=== PATIENT | female | born 1995 | race Two or more races ===

== ENCOUNTER 2025-04-14 19:37 | Emergency (ER) | payer MEDICAID, SELFPAY ==
[2025-04-14 19:39] VITALS: BMI 68.1
[2025-04-14 19:56] VITALS: BP 125/80; PULSE 103; RESP 17; TEMP 36.9; O2SAT 100
--- NOTE | 2025-04-14 20:00 | XR_ITS ---
Examination: Abdomen sonogram, Limited Date and time of exam: April 14, 2025, 8:49 PM INDICATIONS: Vomiting blood today Technique: Real-time villagran scale transabdominal sonographic images of the upper abdomen obtained. Findings: Absent gallbladder Normal common bile duct 0.5 cm Pancreatic head 3.4 cm Liver 15.8 cm fatty infiltration no focal liver lesions Normal hepatopedal portal venous flow Patent IVC IMPRESSION: Normal common bile duct Fatty liver
--- NOTE | 2025-04-14 20:00 | XR_ITS ---
Examination: Complete OB ultrasound greater than 14 weeks Date and time of exam: April 14, 2025 2055 hours INDICATIONS: Hematemesis today Findings: Viable intrauterine single fetus with single amniotic sac presentation cephalic spine maternal right Cardiac motion 132 BPM Placenta anterior grade 3 Umbilical cord insertion seen Amniotic fluid index 17.6 cm Cervix 3.7 cm Ovaries obscured by bowel gas. Composite estimated gestational age based on BPD, head circumference, abdominal circumference, femur length is 30 weeks 2 days Estimated weight 1499 g. Survey of intracranial anatomy, spinal anatomy, abdominal anatomy, four-chamber heart performed with no abnormalities identified. Impression: Viable intrauterine gestation cephalic presentation.
--- NOTE | 2025-04-14 20:01 | PD.EDPREG ---
ED OB Contraction Preg RMI/HPI General Chief complaint: Nausea/Vomiting/Diarrhea Stated complaint: nausea vomitng with streaks of blood Time Seen by Provider: 04/14/25 19:41 Arrival date/time: 04/14/25 19:37 This is a case of 29-year-old female who came in in the emergency room due to abdominal pain cramping in character for 4 days associated with nausea vomiting and loose stool twice today none watery nonbloody non mucoid patient denies any vaginal bleeding spotting or vaginal discharge denies any fever or chills denies contraction patient is 30 weeks 3 para 2 LMP April 02, 2025 last seen OB 2 weeks ago Limitations: no limitations Related Data Previous Rx's ?Medication ?Instructions ?Recorded docusate sodium 100 mg capsule 100 mg PO BID #40 caps 06/05/24 (Colace) hydrocodone 5 mg-acetaminophen 325 1 tab PO Q6H PRN pain (scale score 06/05/24 mg tablet 7-10) #20 tabs ibuprofen 600 mg tablet 600 mg PO Q8H PRN pain (scale 06/05/24 score 4-6) #15 tabs naproxen 500 mg tablet 500 mg PO BID PRN pain #30 tabs 07/14/24 nitrofurantoin 100 mg PO BID 10 days #20 caps 04/14/25 monohydrate/macrocrystals 100 mg capsule (Macrobid) ondansetron 4 mg disintegrating 4 mg PO Q8H PRN nausea and 04/14/25 tablet vomiting #10 tabs oseltamivir 75 mg capsule (Tamiflu) 75 mg PO BID 5 days #10 caps 04/14/25 Allergies Allergy/AdvReac Type Severity Reaction Status Date / Time No Known Allergies Allergy Verified 04/14/25 19:57 Review of Systems Review of Systems Systems Reviewed: All systems reviewed, normal except as documented Constitutional Constitutional: Reports system reviewed and no additional complaints, except as documented and Reports as per HPI ENT Ears, Nose, Mouth, and Throat: Denies dysphagia and Denies odynophagia Cardiovascular Cardiovascular: Reports system reviewed and no additional complaints, except as documented and Reports as per HPI Respiratory Respiratory: Reports system reviewed and no additional complaints, except as documented and Reports as per HPI Gastrointestinal Gastrointestinal: Reports system reviewed and no additional complaints, except as documented, Reports as per HPI, Reports abdominal pain, Denies belching, Denies bloating, Denies change in bowel habits, Denies change in stool character, Denies coffee ground emesis, Denies constipation, Reports cramping, Denies diarrhea, Denies dyspepsia, Denies dysphagia, Denies early satiety, Denies excessive flatus, Denies fecal incontinence, Denies heartburn, Denies hematemesis, Denies hematochezia, Reports loose stools, Denies melena, Reports nausea, Denies odynophagia, Denies tenesmus and Reports vomiting Genitourinary Genitourinary: Reports system reviewed and no additional complaints, except as documented and Reports as per HPI Musculoskeletal Musculoskeletal: Reports system reviewed and no additional complaints, except as documented and Reports as per HPI Neurologic Neurologic: Reports system reviewed and no additional complaints, except as documented and Reports as per HPI Past Medical History Past Medical History NEUROLOGIC: Negative Neurological Disorders or Seizures CARDIAC: Negative Cardiac Disorders or Congestive Heart Failure RESPIRATORY: Negative Chronic Obstructive Pulmonary Disease (COPD) GASTROINTESTINAL: Positive Gastrointestinal Disorders and Gall Bladder Disease GENITOURINARY: Negative Genitourinary Disorders or Renal Disease REPRODUCTIVE: Positive Previous Pregnancies; Negative Breast Cancer, Endometriosis, Pelvic Inflammatory Disease or Uterine Prolapse MUSCULOSKELETAL: Negative Musculoskeletal Disorders ENDOCRINE: Negative Endocrine Disorders, Diabetes Mellitus Type 1 or Diabetes Mellitus Type 2 HEMATOLOGIC: Positive Blood Disorders and Anemia OTHER HISTORY: Positive Chicken Pox; Negative Hospitalization, Autoimmune Disease, Down Syndrome, Developmental Delay, Shingles, Falls, Blood Transfusions, Blood Transfusion Reaction, Anesthesia Reactions, Organ Transplant, Chemotherapy, Radiation Therapy, Hyperbaric Therapy, MRSA, VRSA, Vancomycin-Resistant Enterococci, Human Immunodeficiency Virus (HIV), Measles, Mumps, Rubella (Prydeinig Measles), Pertussis, Clostridium Difficile, Cancer, Breast Cancer, Cervical Cancer or Ovarian Cancer Family History FAMILY HISTORY: Negative Family Psychiatric Problems, Family Respiratory Disorders, Family Cardiac Disorders, Family Gastrointestinal Problems, Family Cancer, Family Surgery or Family Anesthesia Reaction Surgical History SURGICAL: Negative Endocrine Surgery, Section or Organ Transplant Social History SMOKING STATUS: Never smoker SECOND HAND EXPOSURE: No ED Exam General Limitations: Present no limitations General appearance: Present alert and in no apparent distress Head Head exam: Present atraumatic, normocephalic and normal inspection Eye Eye exam: Present normal appearance, PERRL and EOMI ENT ENT exam: Present normal exam, normal oropharynx and mucous membranes moist Neck Neck exam: Present normal inspection, full ROM and trachea midline; Absent tenderness, meningismus, lymphadenopathy or thyromegaly Chest Chest inspection: Present normal inspection and symmetric chest wall rise Respiratory Respiratory exam: Present normal lung sounds bilaterally; Absent respiratory distress, wheezes, stridor, accessory muscle use or prolonged expiratory phase Cardiovascular Cardiovascular exam: Present regular rate, normal rhythm and normal heart sounds; Absent bradycardia, tachycardia, irregular rhythm, systolic murmur or +S3 Abdominal Exam Abdominal exam: Present soft, normal bowel sounds and other ( uterus no tenderness noted no CVA tenderness); Absent guarding, rebound or rigidity Extremities Exam Extremities exam: Present normal inspection and full ROM Back Exam Back exam: Present normal inspection and full ROM Neurological Exam Neurological exam: Present alert, oriented X3, CN II-XII intact, normal gait and reflexes normal; Absent motor sensory deficit Psychiatric Psychiatric exam: Present normal affect and normal mood Skin Skin exam: Present warm, dry, intact and normal color Course Quality Measures none Orders Category Date Time Status Bedside Influenza A&B Antigen Test NOW Care 04/14/25 20:01 Completed Non-Stress Test Now Care 04/14/25 23:16 Active US OB >= 14 weeks Fetus Stat Exams 04/14/25 20:00 Completed US gall bladder Stat Exams 04/14/25 20:00 Completed ABO/RH Type Stat Lab 04/14/25 20:16 Completed Beta HCG,Quantitative Stat Lab 04/14/25 20:16 Completed CBC Stat Lab 04/14/25 20:16 Completed CMP [Comprehensive Metabolic Panel] Stat Lab 04/14/25 20:16 Completed COVID-19 Antigen (In-House) Stat Lab 04/14/25 20:20 Completed Urinalysis Stat Lab 04/14/25 12:01 Completed Ondansetron Inj [Zofran Inj] Med 04/14/25 20:00 Discontinued 4 mg IVP X1 ONE Sodium Chloride 0.9% 1000 ml [Ns] 1,000 ml Med 04/14/25 20:01 Discontinued IV 999 mls/hr Vital Signs Vital signs: Vital Signs Temperature 98.4 F 04/14/25 19:56 Pulse Rate 103 H 04/14/25 19:56 Respiratory Rate 17 04/14/25 19:56 Blood Pressure 125/80 04/14/25 19:56 Pulse Oximetry (%) 100 04/14/25 19:56 Oxygen Delivery Method Room Air 04/14/25 19:56 Patient is afebrile not tachycardic not tachypneic BP stable not hypoxic oxygen saturation in room air OB/Uterine Contractions MDM Narrative MDM Narrative:: This is a case of 29-year-old female who came in in the emergency room due to abdominal pain cramping in character for 4 days associated with nausea vomiting and loose stool twice today none watery nonbloody non mucoid patient denies any vaginal bleeding spotting or vaginal discharge denies any fever or chills denies contraction patient is 30 weeks 3 para 2 LMP April 02, 2025 last seen OB 2 weeks ago patient is awake alert oriented not in distress nontoxic looking excellent skin turgor abdominal exam is benign nonsurgical no guarding no rebound no rigidity uterus no CVA tenderness the rest of the physical examination and neurological exam is normal and unremarkable blood test showed mild leukocytosis with the WBC 11,600 no anemia kidney and liver function is normal no electrolyte [place] [address] patient urine analysis showed WBC and urine suggestive of urinary tract infection ultrasound of the gallbladder is noted absence of gallbladder with fatty liver ultrasound of the pelvis showed normal heart tone [address] la patient condition history and physical examination ordered to give patient Tamiflu for positive influenza A and B and to have NST done NST done at bedside and noted to be normal at this point patient will be discharged per [employer] instruction patient COVID is negative patient was given a bolus of normal saline and Zofran IV 4 mg no recurrence of vomiting abdominal pain was resolved at this point patient will be discharged as influenza and urinary tract infection patient was prescribed with Tamiflu for influenza Macrobid for urinary tract infection and Zofran for vomiting she was also advised to see an OB surveillance observer tomorrow for further evaluation and checkup she was advised for any recurrence persistent worsening symptoms or any fever chills abdominal pain contraction or the fetus is not moving or vaginal bleeding vaginal spotting or vaginal discharge she needs to call 911 or go to the nearest emergency room Patient was discharged with comfortable condition walking with stable gait. Patient verbalized no further complains explained diagnosis and answered patient question. Patient is comfortable with the proposed management plan including the need to follow up with his/her primary care physician and any specialist if applicable Discussed patient for any urgent condition or worsening sx, He/She needed to go to emergency room immediately or call 911. Patient acknowledge the responsibility to follow up as instructed and to monitor her/his symptoms. For any persistence of the symptoms for more than 3-5 days return precaution advised. Discussed the result of the test and was given printed discharge instruction Patient data External records reviewed:: [facility] previous records Clinical information provided by:: patient Social determinants that could affect healthcare access:: none Patient has the following chronic illnesses:: None How is presenting disease/condition affected by chronic disease/condition?: no chronic disease Evaluation data The following diagnostics were reviewed and interpreted by me:: lab results and radiology exam(s) Lab and/or radiology exams considered but not ordered:: Reviewed Interpretation Summary: Reviewed Medications / Prescriptions Medications or Prescriptions considered but not ordered:: Given Medication administrations:: Medication Administration History Discontinued Medications Sodium Chloride (Ns) 1,000 mls @ 999 mls/hr IV .Q1H1M ONE Stop: 04/14/25 21:01 Last Infusion: 04/14/25 21:54 Dose: Infused Documented By: Admin: 04/14/25 20:39 Dose: 999 mls/hr Documented By: DT Ondansetron HCl (Ondansetron Inj 2 Mg/Ml Inj 2 Ml) 4 mg IVP X1 ONE; Protocol Stop: 04/14/25 20:01 Last Admin: 04/14/25 20:34 Dose: 4 mg Documented By: DT Given Consultations Consultation(s) initiated? (list below): Yes Consultation #1 (Physician, Specialty, Details): dr la do NST if NST is normal will discharge patient with Tamiflu Diagnosis OB Contractions Differential Diagnosis: other (Abdominal pain in UTI influenza) Most likely diagnosis given after review of the tests above:: Abdominal pain in UTI influenza Admission Indicated Admission indicated?: not indicated Explain why admission is indicated or not indicated:: Not indicated Admission Request Was there a request for admission?: No Admission Attestation Admission request attestation: Not indicated Disposition Plan Disposition Plan: Discharge Discharge Attestation Discharge Attestation: The patient and all family members were given an opportunity to ask questions and understood the discharge instructions. Discharge instructions specifically effects, indications for sooner follow up or return to the emergency department, and the expected course of current diagnosis. Patient condition: Stable Discharge Plan Plan Patient Disposition: HOME (Self Care) Prescriptions/Referrals Prescriptions/Med Rec: New oseltamivir [Tamiflu] 75 mg capsule 75 mg PO BID 5 Days Qty: 10 0RF ondansetron 4 mg tablet,disintegrating 4 mg PO Q8H PRN (Reason: nausea and vomiting) Qty: 10 0RF nitrofurantoin monohyd/m-cryst [Macrobid] 100 mg capsule 100 mg PO BID 10 Days Qty: 20 0RF Rx Instructions: must administer with a meal/food No Action naproxen 500 mg tablet 500 mg PO BID PRN (Reason: pain) Qty: 30 0RF docusate sodium [Colace] 100 mg capsule 100 mg PO BID Qty: 40 0RF hydrocodone-acetaminophen 5-325 mg tablet 1 tab PO Q6H MDD 4 PRN (Reason: pain (scale score 7-10)) Qty: 20 0RF ibuprofen 600 mg tablet 600 mg PO Q8H PRN (Reason: pain (scale score 4-6)) Qty: 15 0RF Referrals: Giovanni Hairston PA-C [Primary Care Provider] - In 1 week Problem List Clinical Impression: Abdominal pain during , Vomiting during , Influenza, Urinary tract infection Patient/Caregiver Discharge Instructions Education Materials: Urinary Tract Infections in Women, ED Abdominal Pain, Early , ED Influenza (Adult), ED Vomiting (Adult) Additional Instructions: Follow-up with your primary care physician in 2 days for reevaluation for any recurrence persistent worsening symptoms or any emergent concern call 911 or go to the nearest emergency room it is very important to follow-up with your OB surveillance observer tomorrow for reevaluation and checkup increase water intake keep hydrated Pedialyte Gatorade for every bouts of vomiting for any fever chills abdominal contraction vaginal bleeding vaginal discharge vaginal spotting you need to return in the emergency room immediately or call 911 monitor contraction is necessary continue your multivitamins Print Language: [place]i Stand Alone Forms: Mely Award Info., Patient Portal Info Letter PA/BIOMEDICAL ENGINEERING TECHNOLOGIST Supervising Physician PA/KRISTAN Supervising Physician: dr simpson
[2025-04-14 20:30] LABS: COVID-19 Antigen (In-House) Negative (Negative)
[2025-04-14 20:31] LABS: Basophils % (Auto) 0 % (0-2.5); Eosinophils % (Auto) 0 % (0-10); Hematocrit 32.6 % (36.0-46.0); Hemoglobin 11.2 g/dL (12.0-16.0); Immature Granulocytes % (Auto) 1 % (0-0); Immature Granulocytes Auto 0.07 Thou/mm3 (0.00-0.00); Lymphocytes # (Auto) 1.1 Thou/mm3 (1.0-4.8); Lymphocytes % (Auto) 10 % (10-50); Mean Corpuscular HGB Conc 34.4 g/dl (31.0-37.0); Mean Corpuscular Hemoglobin 28.6 pg (25.0-35.0); Mean Corpuscular Volume 83 fL (80-100); Monocytes # (Auto) 0.6 Thou/mm3 (0.0-0.8); Monocytes % (Auto) 5 % (0-12); Neutrophils # (Auto) 9.7 Thou/mm3 (1.8-7.7); Neutrophils % (Auto) 84 % (37-80); Nucleated Red Blood Cell % 0 /100 WBC (0); Platelet Count 344 Thou/mm3 (140-440); RDW Standard Deviation 39.3 fL (36.4-46.3); Red Blood Count 3.92 Miln/mm3 (4.00-5.20); White Blood Count 11.6 Thou/mm3 (3.6-11.0)
[2025-04-14] MEDS: ONDANSETRON INJ 2 MG/ML INJ 2 ML 4 MG IVP (20:34)
[2025-04-14] MEDS: SODIUM CHLORIDE 0.9% 1000 ML 1,000 ML 999 ML IV (20:39)
[2025-04-14 20:59] LABS: Alanine Aminotransferase 11 U/L (10-49); Albumin, Serum 4.1 gm/dL (3.5-5.0); Albumin/Globulin Ratio 1.5 (1.2-2.2); Alkaline Phosphatase 87 U/L (46-116); Anion Gap 11 (7-16); Aspartate Amino Transferase 16 U/L (0-34); BUN/Creatinine Ratio 12 Ratio (12-20); Bilirubin,Total 0.5 mg/dL (0.3-1.2); Blood Urea Nitrogen 7 mg/dL (9-23); Calcium 8.7 mg/dL (8.3-10.6); Calcium (Corrected) 8.7 mg/dL (8.5-10.1); Carbon Dioxide 23.8 mMol/L (20.0-31.0); Chloride 105 mMol/L (98-107); Creatinine (Component) 0.6 mg/dL (0.6-1.3); Estimated Creatinine Clearance 228.9 mL/min (>60); Globulin 2.7 gm/dL (2.3-3.5); Glucose 99 mg/dL (74-106); Osmolality,Calculated 277 (275-295); Potassium 3.5 mMol/L (3.4-5.1); Sodium 140 mMol/L (136-145); Total Protein 6.8 gm/dL (5.7-8.2); eGFR > 60 See Note
[2025-04-14 21:12] LABS: Collection Type, Urine Voided
[2025-04-14 21:16] VITALS: BP 125/85; PULSE 95; RESP 12; TEMP 37; O2SAT 99
[2025-04-14 21:24] LABS: Bacteria,Urine Rare; Bilirubin,Urine Negative (Negative); Blood,Urine Negative (Negative); Clarity,Urine Turbid (Clear/Hazy); Color,Urine Yellow (Lt Yel-Yel); Glucose, Urine Negative (Negative); Ketones,Urine 4+ (Negative); Leukocyte Esterase,Urine Positive (Negative); Nitrite,Urine Negative (Negative); Protein,Urine 1+ (Neg - Trace); RBC,Urine 12 /hpf (0-3); Specific Gravity,Urine 1.035 (1.001-1.035); Squamous Epithelial Cell,Urine 21 /hpf (0-5); WBC,Urine 9 /hpf (0-5)
--- NOTE | 2025-04-14 23:18 | PC.NURSE ---
pt is a at 29.5wks. pt denies vaginal bleeding, leaking of fluid, uterine contractions, complications with this or previous pregnacies, headache, blurry vision, or RUQ/epig pain. pt reports positive movement. NST performed from 2750-5867. NST reactive, baseline 145, moderate variability, with accels, no decels. no UCs per toco or patient. abd palpates soft. audible movement during NST.
[2025-04-14 23:19] VITALS: BP 114/72; PULSE 113; RESP 18; TEMP 37.2; O2SAT 97
[2025-04-14 23:39] VITALS: PULSE 79; RESP 14; TEMP 37; O2SAT 99
== END 2025-04-14 23:41 | disposition home or self-care (01) ==
PROVIDERS: Nurse Practitioner Family; Emergency Provider Emergency Medicine; PCP Physician Assistant
DX: O23.43 Unspecified infection of urinary tract in pregnancy, third trimester (principal); N39.0 Urinary tract infection, site not specified; J11.1 Influenza due to unidentified influenza virus with other respiratory manifestations; K76.0 Fatty (change of) liver, not elsewhere classified; Z3A.30 30 weeks gestation of pregnancy; O99.513 Diseases of the respiratory system complicating pregnancy, third trimester; O26.613 Liver and biliary tract disorders in pregnancy, third trimester
CPT/HCPCS: 36415; 76705; 76805; 80053; 81001; 84702; 85025; 86900; 86901; 87400; 87811; 96361; 96374; 99284; J2405; J7030

== ENCOUNTER 2025-06-27 05:02 | Inpatient (IN) | payer MEDICAID, SELFPAY ==
[2025-06-27] VITALS (20 sets, daily range): BP systolic 99–154; BP diastolic 49–92; PULSE 72–96; RESP 16–99; TEMP 36.7–36.9; O2SAT 96; BMI 31.2
[2025-06-27] MEDS: Ampicillin Inj 2,000 MG in SODIUM CHLORIDE 0.9% (POP) 100 ML 200 MG IV (06:27)
--- NOTE | 2025-06-27 06:59 | PD.LDHP ---
Documentation for date of: 06/27/25 OB Labor/Induct. HPI History of Present Illness History of present illness: H and P dictated in Nuance on STAT line [id number] Meds Home Medications and Allergies Home Medications ?Medication ?Instructions ?Recorded ?Confirmed ?Type ferrous sulfate 325 mg (65 mg mg 06/27/25 History iron) tablet (FeroSul) vits no.130-ferrous fum 1 tab PO QDAY 06/27/25 06/27/25 History 27 mg iron-folic acid 800 mcg tablet ( Vitamin) Allergies Allergy/AdvReac Type Severity Reaction Status Date / Time No Known Allergies Allergy Verified 06/27/25 05:13 OB Exam Physical Exam Vital signs: Pulse BP 93 120/86 H 06/27/25 06:33 06/27/25 06:33
[2025-06-27 07:35] LABS: Collection Type, Urine Clean Catch
[2025-06-27 07:41] LABS: Basophils # (Auto) 0.1 Thou/mm3 (0.0-0.2); Basophils % (Auto) 1 % (0-2.5); Eosinophils # (Auto) 0.0 Thou/mm3 (0.0-0.5); Eosinophils % (Auto) 0 % (0-10); Hematocrit 35.6 % (36.0-46.0); Hemoglobin 11.4 g/dL (12.0-16.0); Immature Granulocytes Auto 0.05 Thou/mm3 (0.00-0.00); Lymphocytes # (Auto) 3.9 Thou/mm3 (1.0-4.8); Lymphocytes % (Auto) 43 % (10-50); Mean Corpuscular HGB Conc 32.0 g/dl (31.0-37.0); Mean Corpuscular Hemoglobin 25.9 pg (25.0-35.0); Mean Corpuscular Volume 81 fL (80-100); Monocytes # (Auto) 0.6 Thou/mm3 (0.0-0.8); Monocytes % (Auto) 6 % (0-12); Neutrophils # (Auto) 4.6 Thou/mm3 (1.8-7.7); Neutrophils % (Auto) 50 % (37-80); Nucleated Red Blood Cell # 0.02 Thou/mm3 (0.00-0.00); Nucleated Red Blood Cell % 0 /100 WBC (0); Platelet Count 303 Thou/mm3 (140-440); RDW Standard Deviation 52.6 fL (36.4-46.3); Red Blood Count 4.40 Miln/mm3 (4.00-5.20); White Blood Count 9.2 Thou/mm3 (3.6-11.0)
[2025-06-27 07:51] LABS: Bilirubin,Urine Negative (Negative); Blood,Urine Negative (Negative); Clarity,Urine Clear (Clear/Hazy); Color,Urine Lt-Yellow (Lt Yel-Yel); Glucose, Urine Negative (Negative); Ketones,Urine Negative (Negative); Leukocyte Esterase,Urine Positive (Negative); Nitrite,Urine Negative (Negative); PH,Urine 7.0 (5.0-7.0); Protein,Urine Negative (Neg - Trace); RBC,Urine 2 /hpf (0-3); Specific Gravity,Urine 1.015 (1.001-1.035); Squamous Epithelial Cell,Urine 9 /hpf (0-5); Urobilinogen,Urine Negative mg/dL (0.0-1.0); WBC,Urine 23 /hpf (0-5)
--- NOTE | 2025-06-27 07:51 | ESHP_ITS ---
RE: AN YUSUF : 1995 DATE OF ADMISSION: 06/27/2025 This is a 29-year-old 3, para 2-0-0-2 with due date of 06/25 with intrauterine at 40 weeks and 2 days, who presents to labor and delivery complaining of contractions that started at 0400 this morning. She denies any leaking or bleeding. She reports normal movement. Her care is with [facility]. Her urine was positive for group B strep at 17 weeks' gestation and was treated at that time for a bladder infection. She is also treated for iron deficiency anemia during her . ALLERGIES: NO KNOWN DRUG ALLERGIES. MEDICATIONS: 1. multivitamin 1 p.o. daily. 2. Ferrous sulfate 325 mg 1 p.o. b.i.d. PAST MEDICAL HISTORY: Iron deficiency anemia, group B strep urinary tract infection in the second trimester, short interpregnancy interval. SOCIAL HISTORY: She denies any alcohol, drug use or smoking. OBSTETRIC HISTORY: 12/2022, 40-week normal vaginal delivery, 0-pygoe-06-ounce female. 01/2024, 40-week normal vaginal delivery, 3-uhhuu-01-ounce female. PAST SURGICAL HISTORY: Laparoscopic cholecystectomy. REVIEW OF SYSTEMS: She denies any chest pain, palpitations, cough, fever, shortness of breath or lower extremity pain. PHYSICAL EXAMINATION: VITAL SIGNS: Blood pressure is 147/72, heart rate 88, respirations 18, temperature is 98.6. HEENT: Oropharynx and sclerae are clear. LUNGS: Clear to auscultation bilaterally. HEART: Regular rate and rhythm. ABDOMEN: Gravid, term size, consistent with estimated weigh of 8 pounds. PELVIC: no vulvar skin lesions. Cervix is 7 cm, 90%, -1 and vertex intact. EXTREMITIES: Nontender. SKIN: No gross rashes or lesion. NEUROLOGIC: No focal deficit. ASSESSMENT AND PLAN: Intrauterine at 40 weeks and 2 days, active labor, group B streptococcus urinary tract infection, second trimester. PLAN: Ampicillin group B strep prophylaxis. Anticipate normal vaginal delivery. Informed consent was obtained and the patient was made aware of the risks, complications, alternatives and benefits of operative vaginal delivery and delivery and agrees with these modes of delivery if indicated. DT: 06:58:21 TT: 07:23:00 Ref: [id number] - TID: [id number] MTDD
[2025-06-27 07:56] LABS: Alanine Aminotransferase 26 U/L (10-49); Albumin, Serum 3.9 gm/dL (3.5-5.0); Albumin/Globulin Ratio 1.4 (1.2-2.2); Alkaline Phosphatase 212 U/L (46-116); Anion Gap 15 (7-16); Aspartate Amino Transferase 27 U/L (0-34); BUN/Creatinine Ratio 15 Ratio (12-20); Bilirubin,Total 0.4 mg/dL (0.3-1.2); Blood Urea Nitrogen 9 mg/dL (9-23); Calcium 9.7 mg/dL (8.3-10.6); Calcium (Corrected) 9.8 mg/dL (8.5-10.1); Carbon Dioxide 19.5 mMol/L (20.0-31.0); Chloride 107 mMol/L (98-107); Creatinine (Component) 0.6 mg/dL (0.6-1.3); Estimated Creatinine Clearance 143.8 mL/min (>60); Globulin 2.8 gm/dL (2.3-3.5); Glucose 84 mg/dL (74-106); Osmolality,Calculated 278 (275-295); Potassium 3.8 mMol/L (3.4-5.1); Sodium 141 mMol/L (136-145); Total Protein 6.7 gm/dL (5.7-8.2); Uric Acid 7.3 mg/dL (3.1-7.8); eGFR > 60 See Note
[2025-06-27 08:00] LABS: Fibrinogen 538 mg/dL (175-375)
[2025-06-27 08:13] LABS: Syphilis Nonreactive (Nonreactive)
[2025-06-27] MEDS: LIDOCAINE HCL 1% 20 ML VIAL INFL (08:30)
--- NOTE | 2025-06-27 08:41 | PD.LDDS ---
DS: Providers Provider Date of admission: 06/27/25 06:19 Primary care physician: Physician No Primary/Family Admitting Provider: Cesar Bower MD Attending Provider on Admission: Cesar Bower MD Attending Provider on DC: Cesar Bower MD Discharging Provider: Cesar Bower MD DS: Diagnosis Problem List Completed Was Problem List Reviewed/Reconciled?: Yes Summary/Hosp Course Brief History: H and P dictated in Nuance on STAT line [id number] Time Spent with Patient Time attestation: Total time spent providing and/or coordinating discharge services: Exam Vital Signs Temp Pulse Resp BP 98.1 F 84 20 112/65 06/27/25 07:30 06/27/25 08:36 06/27/25 07:30 06/27/25 08:36 Discharge Plan Plan Patient Disposition: HOME (Self Care) Patient condition on transfer: Stable Prescriptions/Referrals Prescriptions/Med Rec: New ibuprofen 600 mg tablet 600 mg PO QID PRN (Reason: pain) Qty: 30 0RF Continued Vitamin 27 mg iron- 800 mcg tablet 1 tab PO QDAY ferrous sulfate [FeroSul] 325 mg (65 mg iron) tablet Patient Comments: TAKE 1 TABLET BY MOUTH EVERY OTHER DAY Referrals: No Primary/Family,Physician [Primary Care Provider] Patient/Caregiver Discharge Instructions Discharge Activity: activity as tolerated Other Discharge Activity Instructions:: Follow up office 6 weeks. Print Language: Citizen Of [place] Stand Alone Forms: Mely Award Info., Patient Portal Info Letter Discharge Order Discharge Orders: Discharge (Routine); Ordered 06/28/25 Ordered By: Cesar Bower Planned Discharge Date 06/28/25
[2025-06-27] MEDS: OXYTOCIN in NS 20 units 20 UNIT/1,000 ML BAG 125 UNIT IV (08:48)
[2025-06-27] MEDS: IBUPROFEN TAB 400 MG TABLET 800 MG PO ×2 (08:54→20:21)
--- NOTE | 2025-06-27 09:11 | OBDSUM_ITS ---
Data ([place]) Data Hx Section: No : 3 Term: 40 : 2 Livin Abortions: Spontaneous & Theraputic: 0 Delivery Data ([place]) Labor Data Initiation of labor: Spontaneous Induction/Augmentation Agent: None ROM date: 06/27/25 ROM time: 08:16 Amniotic membrane rupture type: Artificial Amniotic fluid description: Clear Delivery Data EDC: 06/25/25 EDC calculated by:: LMP/early US confirmation Onset of labor date: 06/27/25 Onset of labor time: 04:00 Complete dilation date: 06/27/25 Complete dilation time: 08:16 [place] delivery date: 06/27/25 [place] delivery time: 08:26 Gestational age (weeks): 40 Gestational age (days): 2 Placenta delivery date: 06/27/25 Stage 1 total time: Labor - Stage 1 Duration 4 hours and 16 minutes Delivered by: DR RUELAS Delivery nurse: SOHEILA Rhodes nurse: DAYTON GAR Flight Manager at delivery: Yes Support person(s) at delivery: SISTER Delivery Method Delivery method: Normal Vaginal Delivery Presentation: Vertex position: OA Anesthesia Type Anesthesia Type: None Placenta Placenta delivery description: Spontaneous Cord blood sent to lab: Yes cord blood collection: Cord Blood Type Episiotomy Episiotomy description: None Lacerations #1: Perineal: 2nd degree Perineal repair Sutures used for repair: 3.0 Chromic EBL Estimated blood loss (ml): 150 Umbilical Cord cord description: 3 Vessels Complications Complications: None [place] Data ([place]) Data order: 1 [place]'s gender: Male Identification band number: [id number] weight (gms): 9 lb 8.031 oz Weight (pounds): 9 lbs and 8.0 ozs [place] length: 21.5 in 1 minute: 9 5 minutes: 9
[2025-06-27] MEDS: BENZO/LANO/ALOE (Dermoplast) 60 GM CAN 1 SPRAY TOP (10:13)
[2025-06-27 14:11] LABS: Basophils # (Auto) 0.0 Thou/mm3 (0.0-0.2); Basophils % (Auto) 0 % (0-2.5); Eosinophils # (Auto) 0.0 Thou/mm3 (0.0-0.5); Eosinophils % (Auto) 0 % (0-10); Hematocrit 30.8 % (36.0-46.0); Hemoglobin 9.9 g/dL (12.0-16.0); Immature Granulocytes Auto 0.08 Thou/mm3 (0.00-0.00); Lymphocytes # (Auto) 1.9 Thou/mm3 (1.0-4.8); Lymphocytes % (Auto) 13 % (10-50); Mean Corpuscular HGB Conc 32.1 g/dl (31.0-37.0); Mean Corpuscular Hemoglobin 26.1 pg (25.0-35.0); Mean Corpuscular Volume 81 fL (80-100); Monocytes # (Auto) 0.9 Thou/mm3 (0.0-0.8); Monocytes % (Auto) 6 % (0-12); Neutrophils # (Auto) 12.1 Thou/mm3 (1.8-7.7); Neutrophils % (Auto) 80 % (37-80); Nucleated Red Blood Cell # 0.00 Thou/mm3 (0.00-0.00); Nucleated Red Blood Cell % 0 /100 WBC (0); Platelet Count 265 Thou/mm3 (140-440); RDW Standard Deviation 53.0 fL (36.4-46.3); Red Blood Count 3.79 Miln/mm3 (4.00-5.20); White Blood Count 15.0 Thou/mm3 (3.6-11.0)
[2025-06-28 04:00] VITALS: BP 118/71; PULSE 68; RESP 18; TEMP 36.6; O2SAT 97
[2025-06-28 07:40] VITALS: BP 121/79; PULSE 95; RESP 18; TEMP 36.8; O2SAT 98
--- NOTE | 2025-06-28 07:50 | ESPR_ITS ---
RE: AN YUSUF : 1995 DATE OF SERVICE: 06/28/2025 SUBJECTIVE: day #1. The patient denies any problem or complaint. She is voiding and ambulating and tolerating a regular diet and passing flatus. She denies any excessive vaginal bleeding. She denies any dizziness or lightheadedness. She denies any chest pain, palpitations, shortness of breath or lower extremity pain. OBJECTIVE: Vital Signs: Blood pressure is 118/71, heart rate 68, respirations 18, temperature 97.8, pulse oximetry is 97% on room air. Lungs: Clear to auscultation bilaterally. Heart: Regular rate and rhythm. Abdomen: Fundus is firm, nontender. Extremities: Nontender. LABORATORY DATA: Hemoglobin pre-delivery is 11.4. Post delivery is 9.9. ASSESSMENT: 1. day #1 status post spontaneous vaginal delivery. 2. Anemia, but hemodynamically stable. PLAN: Discharge home. Discharge instructions given. Follow up in the office in 6 weeks. DT: 07:32:37 TT: 07:49:00 Ref: [id number] - TID: [id number]
== END 2025-06-28 13:10 | disposition home or self-care (01) | DRG 560 ==
LOC: S4SX 09:32 → S4NX 14:54
PROVIDERS: Admitting Provider Specialist; Visit Provider Obstetrics & Gynecology
DX: O48.0 Post-term pregnancy (principal); O99.02 Anemia complicating childbirth; D50.9 Iron deficiency anemia, unspecified; O23.43 Unspecified infection of urinary tract in pregnancy, third trimester; B95.1 Streptococcus, group B, as the cause of diseases classified elsewhere; O70.1 Second degree perineal laceration during delivery; Z37.0 Single live birth; Z3A.40 40 weeks gestation of pregnancy; Z90.49 Acquired absence of other specified parts of digestive tract
CPT/HCPCS: 36415; 59025; 59409; 80053; 81001; 84550; 85025; 85384; 86780; 86850; 86900; 86901; J0290; J2590; J3490; A9270